=== PATIENT | male | born 1980 | race Caucasian/White ===

== ENCOUNTER 2017-06-30 11:38 | Emergency (ER) | payer OTHER ==
[2017-06-30 11:52] VITALS: BP 154/110; PULSE 89; TEMP 98.7; BMI 29.0
--- NOTE | 2017-06-30 12:19 | PDOC ---
History of Present Illness - General Chief Complaint: Abscess Boil Stated Complaint: PILONIDAL CYST Time Seen by Provider: 06/30/17 12:04 - History of Present Illness Initial Comments: 06/30/17 12:16 37 M with h/o L buttock abscess presents to ER with 3 days of worsening L buttock swelling and pain. Pt states that he had a pilonidal cyst in that area that was drained before. He has not had any recurrent episodes until this past week. Pt denies F/C. Denies any spontaneous drainage from the area. Denies any pain with defecation. Past History - Past Medical History Allergies/Adverse Reactions: Allergies Allergy/AdvReac Type Severity Reaction Status Date / Time No Known Allergies Allergy Verified 06/30/17 11:44 Home Medications: Ambulatory Orders NK [No Known Home Medication] 04/02/16 - Immunization History Immunization Up to Date: Yes - Suicide/Smoking/Psychosocial Hx Smoking Status: Yes Smoking History: Current every day smoker Have you smoked in the past 12 months: Yes Number of Cigarettes Smoked Daily: 20 Cigars Per Day: 0 Information on smoking cessation initiated: Yes 'Breaking Loose' booklet given: 04/02/16 Hx Alcohol Use: Yes (OCCASIONAL) Drug/Substance Use Hx: No Substance Use Type: None Review of Systems - Review of Systems Comments:: 06/30/17 12:17 "GENERAL/CONSTITUTIONAL: No fever or chills. No weakness. HEAD, EYES, EARS, NOSE AND THROAT: No change in vision. No ear pain or discharge. No sore throat. CARDIOVASCULAR: No chest pain or shortness of breath. RESPIRATORY: No cough, wheezing, or hemoptysis. GASTROINTESTINAL: No nausea, vomiting, diarrhea or constipation. GENITOURINARY: No dysuria, frequency, or change in urination. MUSCULOSKELETAL: No joint or muscle swelling or pain. No neck or back pain. SKIN: + pain to L buttock NEUROLOGIC: No headache, vertigo, loss of consciousness, or change in strength/ sensation. ENDOCRINE: No increased thirst. No abnormal weight change. HEMATOLOGIC/LYMPHATIC: No anemia, easy bleeding, or history of blood clots. ALLERGIC/IMMUNOLOGIC: No hives or skin allergy. " *Physical Exam - Vital Signs Last Vital Signs Temp Pulse Resp BP Pulse Ox 98.7 F 89 15 154/110 97 06/30/17 11:39 06/30/17 11:39 06/30/17 11:39 06/30/17 11:39 06/30/17 11:39 - Physical Exam Comments: 06/30/17 12:18 "GENERAL: Awake, alert, and fully oriented, in no acute distress HEAD: No signs of trauma EYES: PERRLA, EOMI, sclera anicteric, conjunctiva clear ENT: Auricles normal inspection, hearing grossly normal, nares patent, oropharynx clear without exudates. Moist mucosa NECK: Nontender, no stepoffs, Normal ROM, supple, no lymphadenopathy, JVD, or masses LUNGS: Breath sounds equal, clear to auscultation bilaterally. No wheezes, and no crackles HEART: Regular rate and rhythm, normal S1 and S2, no murmurs, rubs or gallops ABDOMEN: Soft, nontender, normoactive bowel sounds. No guarding, no rebound. No masses EXTREMITIES: Normal range of motion, no edema. No clubbing or cyanosis. No cords, erythema, or tenderness NEUROLOGICAL: Cranial nerves II through XII intact. 5/5 strength and sensation in all extremities, Normal speech, normal gait SKIN: 5cm area of fluctuance on L medial buttock. No significant erythema, no drainage. 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 Pt with no systemic symptoms. Bedside US reveals 2cm pocket of fluid. - I&D 06/30/17 13:11 I&D performed, draining 20cc purulent foul smelling fluid. Pt instructed to return to ED in 2 days for wound check. *DC/Admit/Observation/Transfer Diagnosis at time of Disposition: Abscess - Discharge Dispostion Disposition: HOME Condition at time of disposition: Good - Patient Instructions Printed Discharge Instructions: DI for Incision and Drainage of a Skin Abscess Additional Instructions: Return to the ED in 48 hours for re-evaluation of your wound. If you experience worsening pain, swelling, fevers, or any other concerning symptoms, return to the ED immediately.
== END 2017-06-30 13:40 | disposition home or self-care (01) ==
LOC: FER 11:38
PROC: 0H98XZZ Drainage of Buttock Skin, External Approach (ICD-10-PCS; principal; 2017-06-30)
DX: L02.31 Cutaneous abscess of buttock (principal); F17.210 Nicotine dependence, cigarettes, uncomplicated
CPT/HCPCS: 99281-25

== ENCOUNTER 2017-07-03 10:55 | Emergency (ER) | payer OTHER ==
--- NOTE | 2017-07-03 10:59 | PDOC ---
History of Present Illness - General Chief Complaint: Revisit,Wound Recheck Stated Complaint: WOUND RECHECK LOWER BACK Time Seen by Provider: 07/03/17 10:58 - History of Present Illness Initial Comments: 07/03/17 10:59 37 M with I&D of infected pilonidal cyst 2 days ago returning for wound check. Reports improving pain, minimal drainage from wound. No F/C. Pt has been taking his abx. Past History - Past Medical History Allergies/Adverse Reactions: Allergies Allergy/AdvReac Type Severity Reaction Status Date / Time No Known Allergies Allergy Verified 07/03/17 10:57 Home Medications: Ambulatory Orders Cephalexin [Keflex] 500 mg PO BID #14 capsule 06/30/17 Other medical history: PT DENEIS - Immunization History Immunization Up to Date: Yes - Suicide/Smoking/Psychosocial Hx Smoking Status: Yes Smoking History: Current every day smoker Have you smoked in the past 12 months: Yes Number of Cigarettes Smoked Daily: 10 Cigars Per Day: 0 Information on smoking cessation initiated: Yes 'Breaking Loose' booklet given: 06/30/17 Hx Alcohol Use: Yes (OCCASIONAL) Drug/Substance Use Hx: No Substance Use Type: None Review of Systems - Review of Systems Comments:: 07/03/17 11:12 "GENERAL/CONSTITUTIONAL: No fever or chills. No weakness. HEAD, EYES, EARS, NOSE AND THROAT: No change in vision. No ear pain or discharge. No sore throat. CARDIOVASCULAR: No chest pain or shortness of breath. RESPIRATORY: No cough, wheezing, or hemoptysis. GASTROINTESTINAL: No nausea, vomiting, diarrhea or constipation. GENITOURINARY: No dysuria, frequency, or change in urination. MUSCULOSKELETAL: No joint or muscle swelling or pain. No neck or back pain. SKIN: +minimal pain at I&D site NEUROLOGIC: No headache, vertigo, loss of consciousness, or change in strength/ sensation. ENDOCRINE: No increased thirst. No abnormal weight change. HEMATOLOGIC/LYMPHATIC: No anemia, easy bleeding, or history of blood clots. ALLERGIC/IMMUNOLOGIC: No hives or skin allergy. " *Physical Exam - Physical Exam Comments: 07/03/17 11:14 "GENERAL: Awake, alert, and fully oriented, in no acute distress HEAD: No signs of trauma EYES: PERRLA, EOMI, sclera anicteric, conjunctiva clear ENT: Auricles normal inspection, hearing grossly normal, nares patent, oropharynx clear without exudates. Moist mucosa NECK: Nontender, no stepoffs, Normal ROM, supple, no lymphadenopathy, JVD, or masses LUNGS: Breath sounds equal, clear to auscultation bilaterally. No wheezes, and no crackles HEART: Regular rate and rhythm, normal S1 and S2, no murmurs, rubs or gallops ABDOMEN: Soft, nontender, normoactive bowel sounds. No guarding, no rebound. No masses EXTREMITIES: Normal range of motion, no edema. No clubbing or cyanosis. No cords, erythema, or tenderness NEUROLOGICAL: Cranial nerves II through XII intact. 5/5 strength and sensation in all extremities, Normal speech, normal gait SKIN: I&D site R buttock with packing in place, scant bloody drainage, no surrounding erythema, minimal induration without any fluctuance. " Medical Decision Making - Medical Decision Making 07/03/17 11:15 37 M with I&D of infected pilonidal cyst 2 days ago. Now well healing. - Packing removed - Dressed with gauze - Continue abx, f/u PMD and surgery for possible cyst removal *DC/Admit/Observation/Transfer Diagnosis at time of Disposition: Abscess - Discharge Dispostion Disposition: HOME Condition at time of disposition: Stable - Patient Instructions Additional Instructions: Continue taking your antibiotics as prescribed. If you experience worsening pain, swelling, fevers, or any other concerning symptoms, return to the ER. - Attestations Physician Attestion: 07/03/17 11:16 I, Dr. Kalyan Bedolla MD, attest that this document has been prepared under my direction and personally reviewed by me in its entirety. I further attest, that it accurately reflects all work, treatment, procedures and medical decision -making performed by me.
[2017-07-03 11:02] VITALS: BP 121/81; PULSE 82; TEMP 98.6; BMI 29.0
== END 2017-07-03 11:29 | disposition home or self-care (01) ==
LOC: FER 10:55
DX: Z48.01 Encounter for change or removal of surgical wound dressing (principal)
CPT/HCPCS: 99281-25